=== PATIENT | male | born 1955 | race Native Hawaiian/Other Pacific Islander ===

== ENCOUNTER → 2022-06-20 09:43 | Outpatient (CLI) | payer BC, SELFPAY ==
--- NOTE | ~2022-06-20 | MR_ITS ---
EXAMINATION: MR lumbar spine wo con DATE: 06/20/2022 10:37 INDICATION: Disc degeneration. Low back pain radiating down the right leg. TECHNIQUE: Magnetic resonance imaging (MRI) of the lumbar spine was performed without intravenous con trast. Sequences included sagittal T2-weighted FSE, sagittal T2-weighted FS FSE, sagittal T1-weighted FSE, and axial T2-weighted FSE. COMPARISON: None FINDINGS: Bone alignment is normal. There is mild chronic anterior wedging of T12 vertebral body, lik jarvis physiologic. There is mildly decreased disc height at L3-L4 and L4-L5. The distal spinal cord sig nal intensity is normal. The conus medullaris is at L1. The following disc levels are specifically di scussed: L1-L2: The disc does not extend beyond the endplate margin. There is mild bilateral facet joint osteo arthritis. There is no neural foraminal stenosis. There is no central canal stenosis. L2-L3: The disc is mildly bulging. There is mild bilateral facet joint osteoarthritis. There is mild bilateral neural foraminal stenosis. There is no central canal stenosis. L3-L4: The disc is bulging and has an annular fissure. There is severe bilateral facet joint osteoart hritis. There is mild bilateral neural foraminal stenosis. There is mild central canal stenosis. L4-L5: The disc is bulging. There is severe bilateral facet joint osteoarthritis. There is mild right and moderate left neural foraminal stenosis. There is mild central canal stenosis. L5-S1: The disc does not extend beyond the endplate margin. There is moderate right and severe left f acet joint osteoarthritis. There is mild left neural foraminal stenosis. There is no central canal st enosis. IMPRESSION: 1. Moderate spondylosis at L4-L5 and mild spondylosis at other levels. Reviewed, dictated and finalized at location A. [facility]
--- NOTE | ~2022-06-20 | MR_ITS ---
EXAMINATION: MR cervical spine wo con DATE: 06/20/2022 10:35 INDICATION: Disc degeneration. Neck pain with bilateral hand numbness. TECHNIQUE: Magnetic resonance imaging (MRI) of the cervical spine was performed without intravenous c ontrast. Sequences included sagittal T2-weighted FSE, sagittal T2-weighted FS FSE, sagittal T1-weight ed FSE, axial MERGE, and axial T2-weighted FSE. COMPARISON: None FINDINGS: There is 2 mm retrolisthesis of C3 on C4, C4 on C5, and C5 on C6. There is mild chronic ant erior wedging of C5 vertebral body. There is moderately decreased disc height at C3-C4 and C4-C5 and severely decreased disc height at C5-C6. There is increased T2-weighted signal intensity in the spina l cord at C5, consistent with myelomalacia. The following disc levels are specifically discussed: C2-C3: The disc does not extend beyond the endplate margin. There is no uncovertebral joint osteoarth ritis. There is mild bilateral facet joint osteoarthritis. There is no neural foraminal stenosis. The re is no central canal stenosis. C3-C4: The disc is bulging with superimposed central extrusion. There is severe bilateral uncovertebr al joint osteoarthritis. There is mild bilateral facet joint osteoarthritis. There is moderate neural foraminal stenosis. There is severe central canal stenosis with ventral and dorsal indentation of th e spinal cord. C4-C5: The disc is bulging. There is severe bilateral uncovertebral joint osteoarthritis. There is mi ld bilateral facet joint osteoarthritis. There is moderate bilateral neural foraminal stenosis. There is severe central canal stenosis with ventral and dorsal indentation of the spinal cord. C5-C6: The disc is bulging. There is severe bilateral uncovertebral joint osteoarthritis. There is mi ld bilateral facet joint osteoarthritis. There is severe right and mild left neural foraminal stenosi s. There is severe central canal stenosis with ventral and dorsal indentation of the spinal cord. C6-C7: The disc is bulging. There is mild bilateral uncovertebral joint osteoarthritis. There is mode rate bilateral facet joint osteoarthritis. There is mild bilateral neural foraminal stenosis. There i s mild central canal stenosis. C7-T1: The disc does not extend beyond the endplate margin. There is no uncovertebral joint osteoarth ritis. There is severe bilateral facet joint osteoarthritis. There is mild bilateral neural foraminal stenosis. There is no central canal stenosis. IMPRESSION: 1. Myelomalacia at C5. 2. Severe cervical spondylosis. Reviewed, dictated and finalized at location A. [facility]
== END ==
DX: M51.36 Other intervertebral disc degeneration, lumbar region (principal); M47.26 Other spondylosis with radiculopathy, lumbar region; M47.22 Other spondylosis with radiculopathy, cervical region
CPT/HCPCS: 72141; 72148

== ENCOUNTER 2023-06-19 14:18 | Outpatient (NON) | payer BC, SELFPAY ==
[2023-06-19 14:54] LABS: Basophils Absolute Auto 0.1 K/mm3 (0.0-0.1); Basophils Percent Auto 0.4 % (0.2-1.2); Eosinophils Absolute Auto 0.1 K/mm3 (0-0.3); Hematocrit 34.1 % (42.0-52.0); Immature Granulocyte Absolute 0.17 K/mm3 (0.00-0.031); Immature Granulocyte Percent A 1.3 % (0-0.5); Lymphocytes Absolute Auto 1.52 K/mm3 (0.9-3.2); Lymphocytes Percent Auto 11.5 % (18.3-44.2); Mean Corpuscular HGB Conc 32.3 g/dl (32-36); Mean Corpuscular Hemoglobin 29.6 pg (26-34); Mean Corpuscular Volume 91.9 fl (80-100); Monocytes Absolute Auto 1.1 K/mm3 (0.1-0.6); Monocytes Percent Auto 8.4 % (2.6-8.5); Neutrophils Absolute Auto 10.2 K/mm3 (1.3-6.7); Neutrophils Percent Auto 77.4 % (45.5-73.1); Platelet Count Result 407 k/mm3 (150-375); Red Blood Count 3.71 M/mm3 (4.6-6.20); Red Cell Distribution Width 14.8 % (11.5-14.5); White Blood Count 13.2 K/mm3 (4.5-10.0)
[2023-06-19 15:04] LABS: Anion Gap 12 mmol/L (8-16); Blood Urea Nitrogen 14 mg/dL (9-20); Calcium 8.9 mg/dL (8.4-10.2); Carbon Dioxide 28 mmol/L (22-30); Chloride 99 mmol/L (98-107); Estimated Glomerular Filt Rate 60; Glucose 137 mg/dL (65-110); Potassium 3.8 mmol/L (3.4-5.0); Sodium 139 mmol/L (137-145)
== END 2023-06-19 14:19 | disposition home or self-care (01) ==
LOC: HOME HLTH 14:21
PROVIDERS: Visit Provider Surgery
DX: I25.10 Atherosclerotic heart disease of native coronary artery without angina pectoris (principal); Z48.812 Encounter for surgical aftercare following surgery on the circulatory system; Z95.1 Presence of aortocoronary bypass graft
CPT/HCPCS: 80048; 85025

== ENCOUNTER 2023-06-26 09:20 | Outpatient (NON) | payer BC, SELFPAY ==
[2023-06-26 10:01] LABS: Basophils Absolute Auto 0.1 K/mm3 (0.0-0.1); Basophils Percent Auto 0.4 % (0.2-1.2); Eosinophils Absolute Auto 0.3 K/mm3 (0-0.3); Hematocrit 32.7 % (42.0-52.0); Hemoglobin 10.3 g/dL (14.0-18.0); Immature Granulocyte Absolute 0.07 K/mm3 (0.00-0.031); Immature Granulocyte Percent A 0.6 % (0-0.5); Lymphocytes Absolute Auto 1.33 K/mm3 (0.9-3.2); Lymphocytes Percent Auto 11.9 % (18.3-44.2); Mean Corpuscular HGB Conc 31.5 g/dl (32-36); Mean Corpuscular Hemoglobin 28.9 pg (26-34); Mean Corpuscular Volume 91.6 fl (80-100); Mean Platelet Volume 9.4 fl (7.4-10.4); Monocytes Absolute Auto 0.9 K/mm3 (0.1-0.6); Monocytes Percent Auto 8.3 % (2.6-8.5); Neutrophils Absolute Auto 8.5 K/mm3 (1.3-6.7); Neutrophils Percent Auto 75.8 % (45.5-73.1); Platelet Count Result 505 k/mm3 (150-375); Red Blood Count 3.57 M/mm3 (4.6-6.20); Red Cell Distribution Width 14.9 % (11.5-14.5); White Blood Count 11.2 K/mm3 (4.5-10.0)
[2023-06-26 10:20] LABS: Anion Gap 11 mmol/L (8-16); Blood Urea Nitrogen 12 mg/dL (9-20); Calcium 9.3 mg/dL (8.4-10.2); Carbon Dioxide 26 mmol/L (22-30); Chloride 104 mmol/L (98-107); Estimated Glomerular Filt Rate > 60; Glucose 102 mg/dL (65-110); Potassium 3.6 mmol/L (3.4-5.0); Sodium 141 mmol/L (137-145)
== END 2023-06-26 09:21 | disposition home or self-care (01) ==
PROVIDERS: Visit Provider Surgery
DX: Z48.812 Encounter for surgical aftercare following surgery on the circulatory system (principal); Z95.1 Presence of aortocoronary bypass graft
CPT/HCPCS: 80048; 85025

== ENCOUNTER 2023-11-25 16:30 | Outpatient (RCR) | payer BC, SELFPAY ==
[2023-07-31 08:48] VITALS: BP 140/80; PULSE 74; RESP 18; O2SAT 97
[2023-07-31 09:06] VITALS: PULSE 74
== END 2023-11-25 18:15 | disposition home or self-care (01) ==
LOC: ANHCPREHAB 16:30
PROVIDERS: PCP Family Medicine; Visit Provider Internal Medicine Cardiovascular Disease
DX: Z95.1 Presence of aortocoronary bypass graft (principal)
CPT/HCPCS: 93798

== ENCOUNTER 2023-12-26 13:22 | Emergency (ER) | payer BC, SELFPAY ==
[2023-12-26 13:34] VITALS: BP 135/82; PULSE 87; RESP 16; TEMP 36.7; O2SAT 97
--- NOTE | 2023-12-26 14:15 | ED.GENADULT ---
HPI - General Adult General Chief complaint: Nausea/Vomiting/Diarrhea Stated complaint: Diarrhea Time Seen by Provider: 12/26/23 14:15 Source: patient, RN notes reviewed and old records reviewed Mode of arrival: ambulatory Limitations: no limitations History of Present Illness HPI narrative: 68-year-old male to [facility] for complaint of diarrhea low-grade fever that lasted 2 days and resolved 3 days ago. Patient states that diarrhea returned today. Patient reports 1 bowel movement of watery diarrhea today. Patient denies abdominal pain, nausea, vomiting, fever. Patient states he eats at restaurants frequently and believes he may have had food poisoning. Patient in no acute distress. Patient able to tolerate fluids by mouth. Patient states that he is going to be traveling long hours and is requesting antibiotics to help with his symptoms. Related Data Home Medications Medication Instructions Recorded Confirmed atorvastatin 40 mg tablet 40 mg PO DAILY 12/26/23 12/26/23 clopidogrel 75 mg tablet 75 mg PO DAILY 12/26/23 12/26/23 losartan 50 mg tablet 50 mg PO DAILY 12/26/23 12/26/23 metoprolol succinate 25 mg 25 mg PO DAILY 12/26/23 12/26/23 tablet,extended release 24 hr pantoprazole 40 mg tablet,delayed 40 mg PO DAILY 12/26/23 12/26/23 release potassium chloride 10 mEq 10 meq PO DAILY 12/26/23 12/26/23 tablet,extended release valacyclovir 500 mg tablet 500 mg PO DAILY 12/26/23 12/26/23 Allergies Allergy/AdvReac Type Severity Reaction Status Date / Time No Known Allergies Allergy Unverified 12/26/23 13:38 Review of Systems Review of Systems: All systems reviewed & are unremarkable except as noted in HPI and below Constitutional: Constitutional: Reports no additional constitutional complaints Eyes: Eyes: Reports no additional eye complaints ENT: Reports system reviewed and no additional complaints, except as documented Cardiovascular: Cardiovascular: Reports no additional cardiovascular complaints, Denies chest pain and Denies dyspnea Respiratory: Respiratory: Reports no additional respiratory complaints, Denies cough and Denies dyspnea Gastrointestinal: Gastrointestinal: Reports as per HPI, Denies abdominal pain, Denies hematochezia, Denies fecal incontinence, Reports diarrhea, Denies nausea and Denies vomiting Musculoskeletal: Musculoskeletal: Reports no additional musculoskeletal complaints Neurologic: Reports system reviewed and no additional complaints, except as documented Psychiatric: Psychiatric: Reports no additional psychiatric complaints PMFSH Family History Family History Father Acute myocardial infarction Hypertension Heart disease Sibling Heart disease Social History Social History Smoking status: Never smoker Comments At the time of my signature, I reviewed and agree with the nursing past medical, surgical, social, and family history. There is no relevant family history pertinent to the patient complaint. Exam Const: General: cooperative, healthy appearing, comfortable, no acute distress, alert and well nourished Nutritional Appearance: well nourished Orientation/consciousness: patient oriented x3 Limitations: no limitations HENMT: Head: normal to inspection Ears: external ears normal Face/Nose/Sinus: Normal external nose present, Normal nares present, normal facial exam, No erythema and No edema Face and sinus: normal facial exam, no erythema and no edema Mouth: Yes Normal oral and palatal mucosa present Eyes: General: appearance normal, both eyes and all related structures Neck: Neck: normal visual inspection, full ROM and no meningeal signs Lymphatic: no lymphadenopathy noted and no lymphedema noted Chest: Chest palpation & inspection: normal inspection of the chest Resp: Effort & Inspection: normal respiratory effort and able to speak i
== END 2023-12-26 14:49 | disposition home or self-care (01) ==
PROVIDERS: Emergency Provider Nurse Practitioner Family; PCP Family Medicine
DX: A09 Infectious gastroenteritis and colitis, unspecified (principal)
CPT/HCPCS: 99211; G0463

== ENCOUNTER 2024-09-29 13:59 | Emergency (ER) | payer BC, SELFPAY ==
--- NOTE | 2024-09-29 14:10 | ED.URI ---
HPI - URI/Sore Throat General Chief Complaint: Upper Respiratory Infection Stated Complaint: COUGH/SINUS Time Seen by Provider: 09/29/24 14:11 Source: patient, RN notes reviewed and old records reviewed Mode of arrival: ambulatory Limitations: no limitations History of Present Illness HPI Narrative: 68 year old male presents to [facility] care with complaints of cough and cold symptoms starting 2 days ago with nasal drainage and congestion with frequent cough noted, denies any dyspnea. Patient reports that he just go back from 3 week trip for work [place] the country. Patient states that he has been using Flonase nasal spray and Tessalon Perles with no improvement of his symptoms and cough has been interrupting his sleep. MD elicited complaint: cough, rhinorrhea and nasal congestion Pertinent past history: other (sinus problems) Onset (ago): day(s) (2-3 days) Consistency: progressively worsening Severity: moderate Description of mucous: clear Able to tolerate fluids by mouth: Yes Associated symptoms: rhinorrhea, nasal congestion, cough and other (facial pressure, some headache) Treatments prior to arrival: other (flonase) Related Data Home Medications ?Medication ?Instructions ?Recorded ?Confirmed ?Last Taken ?Type atorvastatin 40 mg tablet 40 mg PO DAILY 12/26/23 09/29/24 Unknown History clopidogrel 75 mg tablet 75 mg PO DAILY 12/26/23 09/29/24 Unknown History losartan 50 mg tablet 50 mg PO DAILY 12/26/23 09/29/24 Unknown History metoprolol succinate 25 mg 25 mg PO DAILY 12/26/23 09/29/24 Unknown History tablet,extended release 24 hr pantoprazole 40 mg tablet,delayed 40 mg PO DAILY 12/26/23 09/29/24 Unknown History release potassium chloride 10 mEq 10 meq PO DAILY 12/26/23 09/29/24 Unknown History tablet,extended release valacyclovir 500 mg tablet 500 mg PO DAILY 12/26/23 09/29/24 Unknown History aspirin 81 mg tablet,delayed 81 mg PO DAILY 09/29/24 09/29/24 Unknown History release (Adult Aspirin Regimen) erythromycin 5 mg/gram (0.5 %) eye 09/29/24 Unknown History ointment ezetimibe 10 mg tablet mg 09/29/24 Unknown History losartan 100 mg tablet mg 09/29/24 Unknown History magnesium 200 mg tablet 200 mg PO BID 09/29/24 09/29/24 Unknown History Allergies Allergy/AdvReac Type Severity Reaction Status Date / Time No Known Allergies Allergy Verified 09/29/24 14:08 Review of Systems Review of Systems: CONSTITUTIONAL: Reports malaise, no chills, sweats, low grade fever. EYES: Denies visual changes, redness, or discharge. ENT: Reports rhinorrhea, congestion, sinus pain, no otalgia and no sore throat. CARDIOVASCULAR: Denies chest pain, palpitations, or edema. RESPIRATORY: Reports cough.? Denies dyspnea. GASTROINTESTINAL: Denies abdominal pain, nausea, vomiting, diarrhea SKIN: Denies rash or itching. MUSCULOSKELETAL: Denies myalgia. NEUROLOGIC: frontal headache. All systems reviewed & are unremarkable except as noted in HPI and below PMFSH Past Medical History Medical History Anticoagulant long-term use Plavix History of sinus problem Bronchitis Hyperlipidemia Hypertension Arthritis GERD (gastroesophageal reflux disease) VALENTIN on CPAP Surgical History Surgical History History of meniscectomy of left knee H/O meniscectomy of right knee H/O blepharoplasty History of open heart surgery Hx of tonsillectomy Family History Family History Father Acute myocardial infarction Hypertension Heart disease Sibling Heart disease Social History Social History Smoking status: Never smoker Alcohol intake: current Alcohol use details: social Substance use type: does not use Living arrangements: with family Gender identity (if verbalized by the patient): Male Comments At time of signature, agree with nursing past medical, surgical, social and family history. There is no relevant family history pertinent to the presenting complaint Exam Narrative: GENERAL: Ill-appearing, well-nourished, and in no acute distress. HEAD: Normocephalic EYES: PERRLA, conjunctivae clear ENT: Nares clear, turbinates edematous and erythematous, clear discharge, sinus pressure frontal headache.Mucous membranes moist. TM pearly cm with dull light reflex bilaterally; no tragal tenderness. Oropharynx erythematous without lesions. Tonsils not present and throat without exudate, no drooling, no hoarseness, no trismus, uvula midline.post nasal drainage. NECK: Supple. No lymphadenopathy CHEST: Clear to auscultation, breath sounds equal. No wheezing, rhonchi, rales, or stridor. No respiratory distress, speaks in full sentences.dry cough noted SAO2 98% on room air HEART: Regular rate and rhythm. No murmur heard. SKIN: Warm, dry, no rash. NEURO: Alert and oriented x3. PSYCH: Normal mood and affect Course Course Emergency Course: Patient is aware of diagnosis, understands and agrees to treatment plan.? Anticipatory guidance given.? Patient agrees to follow-up as directed and is aware of reasons to seek care at the emergency department. Portions of this record may have been created with voice recognition software Level of Care: Express Care Visit Vital Signs Vital signs: Vital Signs Temperature 37.2 C 09/29/24 14:13 Pulse Rate 98 09/29/24 14:13 Respiratory Rate 16 09/29/24 14:13 Blood Pressure 145/93 H 09/29/24 14:13 Pulse Oximetry 98 09/29/24 14:13 Temperature 37.2 C 09/29/24 14:13 Pulse Rate 98 09/29/24 14:13 Respiratory Rate 16 09/29/24 14:13 Blood Pressure 145/93 H 09/29/24 14:13 Pulse Oximetry 98 09/29/24 14:13 Reviewed MDM - URI/Sore Throat MDM Narrative Medical decision making narrative: Differential diagnosis considered: Martínez virus, strep pharyngitis, allergic rhinitis, upper respiratory tract infection, sinusitis, rhinosinusitis, nasopharyngitis. viral pharyngitis, otitis media, otitis externa, pneumonia, bronchitis, viral cough syndrome, viral syndrome, and influenza.? Exam findings show no acute concerns or changes; patient is non-toxic appearing and is in no distress.? Patient is appropriate for outpatient treatment and follow-up. Differential Diagnosis Differential diagnosis: Likely upper respiratory infection, sinusitis, viral infection, influenza and other (COVID, acute cough,) Medical Records Attestation: I reviewed the patient's medical records. Lab Data Attestation: I reviewed the patient's lab results. Lab results narrative: influenza A negative, Influenza B negative, COVID antigen negative Labs: Lab Results 09/29/24 Range/Units 14:28 POC Influenza A Ag Negative (Negative) POC Influenza B Ag Negative (Negative) POC SARS CoV-2 Ag Negative (Negative) reviewed Critical Care Time Critical Care Time Critical Care Time: No Discharge Plan Discharge Clinical Impression: Upper respiratory infection with cough and congestion Patient Disposition: Home, Self-Care Condition: Stable Instructions: Antibiotic Form, Upper Respiratory Infection (ED), Acute Cough (ED) Additional Instructions: Increase fluids especially juices and water [id number]-[id number] cough and cold medicine of your choice for your symptoms Zyrtec, Claritin or Carlene daily include Coricidin brand decongestant Cough tablets as directed for cough--do not bite, chew or suck on--swallow whole Steroids as directed--take with food heat to the face 20-30 minutes 4-6 times a day for pain Salt water gargles, throat lozenges or throat sprays as desired Antibiotic as directed--finished the medication If your symptoms persist, change or worsen significantly before you can contact your personal physician then please, without delay, go to the emergency department for further evaluation. Follow-up with PCP in 7-10 days or sooner if needed Follow up with PCP soon in regards to your blood pressure which is elevated above threshold for referral. Blood pressure above 120/80 may indicate pre-hypertension. 143/93 Patient Language: Albanian Prescriptions: New amoxicillin 875 mg tablet 875 mg PO Q12H Qty: 20 0RF prednisone 20 mg tablet 20 mg PO BID Qty: 10 0RF benzonatate 200 mg capsule 200 mg PO TID PRN (Reason: cough) Qty: 20 0RF No Action losartan 50 mg tablet 50 mg PO DAILY atorvastatin 40 mg tablet 40 mg PO DAILY potassium chloride 10 mEq tablet extended release 10 meq PO DAILY clopidogrel 75 mg tablet 75 mg PO DAILY valacyclovir 500 mg tablet 500 mg PO DAILY pantoprazole 40 mg tablet,delayed release (DR/EC) 40 mg PO DAILY metoprolol succinate 25 mg tablet extended release 24 hr 25 mg PO DAILY erythromycin 5 mg/gram (0.5 %) ointment losartan 100 mg tablet ezetimibe 10 mg tablet aspirin [Adult Aspirin Regimen] 81 mg tablet,delayed release (DR/EC) 81 mg PO DAILY magnesium 200 mg tablet 200 mg PO BID Follow-up/Referrals: Malia,Cedric Chavis MD [Primary Care Provider] - Time of Disposition: 14:34 Quality [place] Coma Scale Eyes: Open Verbal: Oriented and Alert Motor: Follows Commands [place] Coma Total Score: 15
[2024-09-29 14:13] VITALS: BP 145/93; PULSE 98; RESP 16; TEMP 37.2; O2SAT 98
[2024-09-29 14:30] LABS: EDCOVIDSCREEN Negative (Negative); EDINFLUASCREEN Negative (Negative); EDINFLUBSCREEN Negative (Negative)
== END 2024-09-29 14:47 | disposition home or self-care (01) ==
PROVIDERS: Emergency Provider Registered Nurse; PCP Family Medicine
DX: J06.9 Acute upper respiratory infection, unspecified (principal); R05.9 Cough, unspecified; Z20.822 Contact with and (suspected) exposure to COVID-19; I10 Essential (primary) hypertension; E78.5 Hyperlipidemia, unspecified; M19.90 Unspecified osteoarthritis, unspecified site; K21.9 Gastro-esophageal reflux disease without esophagitis; G47.33 Obstructive sleep apnea (adult) (pediatric); Z79.82 Long term (current) use of aspirin
CPT/HCPCS: 87426; 87804; 99213; G0463